=== PATIENT | female | born 1980 | race Hispanic/Latino ===

== ENCOUNTER 2017-01-18 23:54 | Emergency (ER) | payer MEDICAID ==
[2017-01-19] MEDS ORDERED: NORCO 5/325 PO ONE (05:42)
[2017-01-19] MEDS ORDERED: ROCEPHIN IM STA (05:43)
[2017-01-19] MEDS ORDERED: XYLOCAINE 1% MPF 5 mL INFILTRATI ONE (05:43)
--- NOTE | 2017-01-19 05:44 | Emergency Department Report ---
Abscess Boil HPI - HPI Chief Complaint: Skin/Abscess/Foreign Body Stated Complaint: POSS BUG BITE/BACK/NECK/SHOULDER PAIN Time Seen by Provider: 01/19/17 05:25 Duration: 1 Day Location: Back History: Yes Pain ( left upper back where she got bitten), Yes Insect Bite (she says she knows it was an insect but she does not look uninfected was.), No Fever , No Purulent Drainage, No Numbness, No Foreign Body, No Previous History HPI: Patient here reports that on Thursday she got bitten by an insect but she doesn't know work on insect was. She said she there is a small bump on her back with brownish area to the center. Patient reports having squeezed it several times. She said the first time plus came up. She said later on she squeezed it and brown liquid came out. Patient says she's been squeezing it. She is reporting pain 7 out of 10. Denies any respiratory symptoms. Denies any fever or chills. Denies any nausea or vomiting. No medication taken. Patient is here with her family member. Home Medications: Home Medications Medication Instructions Recorded Confirmed Last Taken Albuterol *Only Ed* [Proventil] 2.5 mg IH PRN 01/18/14 10/10/14 10/10/14 08:00 buPROPion SR [Wellbutrin SR] 150 mg PO QDAY 10/10/14 10/10/14 10/09/14 09:00 hydrOXYzine PAMOATE [Vistaril] 25 mg PO BID PRN 10/10/14 10/10/14 10/09/14 14:00 Previous Rx's Medication Instructions Recorded Last Taken Type Ibuprofen [Motrin 600 MG tab] 600 mg PO Q8H PRN #50 tablet 03/08/15 Unknown Rx Naproxen [Naprosyn] 500 mg PO BID #30 tablet 08/01/16 Unknown Rx Sulfamethoxazole/Trimethoprim 1 each PO BID #20 tablet 01/19/17 Unknown Rx [Bactrim DS TAB] traMADol [Ultram 50 MG tab] 50 mg PO Q6HR PRN #20 tablet 01/19/17 Unknown Rx Allergies/Adverse Reactions: Allergies Allergy/AdvReac Type Severity Reaction Status Date / Time No Known Allergies Allergy Verified 01/19/17 01:59 ED Review of Systems ROS: Stated complaint: POSS BUG BITE/BACK/NECK/SHOULDER PAIN Other details as noted in HPI Comment: All other systems reviewed and negative Constitutional: denies: chills, fever ENT: denies: ear pain, throat pain, congestion Respiratory: no symptoms reported Cardiovascular: denies: chest pain, palpitations, edema, syncope Gastrointestinal: denies: nausea, vomiting Musculoskeletal: denies: back pain, arthralgia, myalgia Skin: rash, other (insect bite) Neurological: denies: headache, weakness, numbness, paresthesias, confusion, abnormal gait, vertigo ED Past Medical Hx - Past Medical History Previous Medical History?: Yes Hx Hypertension: No Hx Congestive Heart Failure: No Hx Diabetes: No Hx Deep Vein Thrombosis: No Hx Renal Disease: No Hx Sickle Cell Disease: No Hx Seizures: No Hx Psychiatric Treatment: Yes (bipolar, anxiety) Hx Asthma: Yes Hx COPD: No - Surgical History Past Surgical History?: No - Family History Family history: no significant - Social History Smoking Status: Current Every Day Smoker Substance Use Type: None - Medications Home Medications: Home Medications Medication Instructions Recorded Confirmed Last Taken Type Albuterol *Only Ed* [Proventil] 2.5 mg IH PRN 01/18/14 10/10/14 10/10/14 08:00 History buPROPion SR [Wellbutrin SR] 150 mg PO QDAY 10/10/14 10/10/14 10/09/14 09:00 History hydrOXYzine PAMOATE [Vistaril] 25 mg PO BID PRN 10/10/14 10/10/14 10/09/14 14: 00 History Ibuprofen [Motrin 600 MG tab] 600 mg PO Q8H PRN #50 tablet 03/08/15 Unknown Rx Naproxen [Naprosyn] 500 mg PO BID #30 tablet 08/01/16 Unknown Rx Sulfamethoxazole/Trimethoprim 1 each PO BID #20 tablet 01/19/17 Unknown Rx [Bactrim DS TAB] traMADol [Ultram 50 MG tab] 50 mg PO Q6HR PRN #20 tablet 01/19/17 Unknown Rx ED Abscess Boil Physical Exam - Exam General: Vital signs noted. No distress. Alert and acting appropriately. This is a 36-year-old obese female in no acute distress. Size: 1 cm (0.5 cm erythema, minimally indurated area to left upper back. Noted brownish area to Center.. Nonfluctuant. Tender to palpate.) Exam: Yes Tenderness (left upper back.), Yes Surrounding Cellulites/Erythema ( minimal), Yes Normal Neurologic Exam, Yes Normal Circulation, No Fluctuance, No Lymphangitis, No Crepitation, No Heart Murmur (S1-S2. Regular rate and rhythm.) Exam: Lungs: Clear to auscultate bilaterally, no rhonchi wheezes or rales. Extremity: No clubbing, cyanosis or edema.plus 2 pulses in all extremities. Neck: Supple, nontender to palpate and no adenopathy. Mouth: Uvula is midline, oral airway is patent, no pharyngeal erythema or exudate. No peritonsillar abscess alert and mouth is moist. Psych: Normal mood and behavior. I & D Note - I & D Note I & D Note: No need to incision and drainage area her. Area is with minimal induration and nonfluctuant. Her tetanus vaccine is up-to-date from 2013. ED Course Vital Signs 01/19/17 01:59 Temperature 98.9 F Pulse Rate 92 H Respiratory 18 Rate Blood Pressure 152/89 O2 Sat by Pulse 99 Oximetry - Reevaluation(s) Reevaluation #1: 01/19/17 06:34 Patient given Dickens 5/325 2 tablets emergency room, she was also given Rocephin 1 g IM without any adverse reaction. Critical care attestation.: If time is entered above; I have spent that time in minutes in the direct care of this critically ill patient, excluding procedure time. ED Medical Decision Making - Medical Decision Making ED course: Patient here for complaint of left upper back pain from insect bite. Patient with cellulitis localized to left upper back and insect bite. Patient given Dickens 5/325 2 tablets emergency room for pain. Her tetanus vaccine is up-to-date as of 2013 per hospital records. She was given Rocephin 1 g IM in ED without any adverse reaction. I discussed with patient that she needs to follow-up with her primary care physician in 3-5 days and if she does not have one to follow-up with [facility]. She discharged home with prescription for Bactrim and Ultram with her family member. ED Disposition Clinical Impression: Cellulitis of skin of back Insect bite of left upper back excluding scapular region with infection Qualifiers: Encounter type: initial encounter Qualified Code(s): S20.462A - Insect bite ( nonvenomous) of left back wall of thorax, initial encounter; W57.XXXA - Bitten or stung by nonvenomous insect and other nonvenomous arthropods, initial encounter; L08.9 - Local infection of the skin and subcutaneous tissue, unspecified Disposition: DISCHARGED TO HOME OR SELFCARE Is pt being admited?: No Does the pt Need Aspirin: No Condition: Stable Instructions: Cellulitis (ED), Insect Bite or Sting (ED) Additional Instructions: Please take antibiotic as prescribed. Follow up Primary care physician in 3-5 days if you do not have a primary care physician, he can follow-up with [facility]. Turning to the emergency room if you, develop fever, chills, nausea vomiting, increased redness and swelling to affected area on back. Prescriptions: Sulfamethoxazole/Trimethoprim [Bactrim DS TAB] 1 each PO BID #20 tablet traMADol [Ultram 50 MG tab] 50 mg PO Q6HR PRN #20 tablet PRN Reason: Pain Referrals: PRIMARY CARE, [Primary Care Provider] - 3-5 Days [facility] [Outside] - 3-5 Days Forms: Accompanied Note, Work/School Release Form(ED)
[2017-01-19 07:03] VITALS: BP 167/86
== END 2017-01-19 07:04 | disposition home or self-care (01) ==
LOC: ED 23:54
DX: S20.462A Insect bite (nonvenomous) of left back wall of thorax, initial encounter (principal); L03.312 Cellulitis of back [any part except buttock and flank]; L08.9 Local infection of the skin and subcutaneous tissue, unspecified; F41.9 Anxiety disorder, unspecified; F31.9 Bipolar disorder, unspecified; J45.909 Unspecified asthma, uncomplicated; F17.200 Nicotine dependence, unspecified, uncomplicated; W57.XXXA Bitten or stung by nonvenomous insect and other nonvenomous arthropods, initial encounter; Y93.89 Activity, other specified; Y99.8 Other external cause status; Y92.89 Other specified places as the place of occurrence of the external cause
CPT/HCPCS: 81025; 96372; 99283; J0696